=== PATIENT | female | born 1990 | race Caucasian/White ===

== ENCOUNTER 2019-12-18 13:10 | Emergency (ER) | payer OTHER, SELFPAY ==
[2019-12-18 13:16] VITALS: BP 125/49; PULSE 65; RESP 16; TEMP 36.6; O2SAT 96; BMI 29.2
--- NOTE | 2019-12-18 13:26 | CT_ITS ---
EXAMINATION: CT HEAD WITHOUT CONTRAST CLINICAL INFORMATION: Headache. COMPARISON: None TECHNIQUE: Contiguous axial imaging was performed from the skull base to vertex without intravenous administration of contrast. This CT examination was performed using dose optimization techniques as appropriate, variously including the following: *Automated exposure control *Adjustment of mA and/or kV according to patient size (this includes techniques or standardized protocols for targeted exams where dose is matched to indication/reason for exam; i.e. extremities or head) *Use of iterative reconstruction technique DLP: 628 mGy-cm FINDINGS: There is no evidence of acute intracranial hemorrhage or territorial infarction. No abnormal mass effect or midline shift is seen. Doran to white matter differentiation is well preserved. No extra-axial fluid collections are identified. The ventricles are normal in size. There is no abnormal attenuation within the brain parenchyma. The osseous structures and soft tissues are normal. The mastoid air cells and visualized portions of the paranasal sinuses are well aerated. IMPRESSION: No acute intracranial process seen.
--- NOTE | 2019-12-18 13:36 | ED.GENADULT ---
HPI - General Adult General Chief complaint: Nausea/Vomiting/Diarrhea Stated complaint: ORELLANA W/ VOMITING SINCE T-1 Time Seen by Provider: 12/18/19 13:19 Source: patient Mode of arrival: EMS Limitations: no limitations History of Present Illness HPI narrative: Patient presents to ED for headache, nausea, vomiting since yesterday. Patient states 1 episode of diarrhea this morning. Patient denies neck stiffness, fever, chills, or any recent head trauma. Patient states history of headache before in the past. Patient denies any abdominal pain. Patient states tingling in extremities with headache since yesterday. Related Data Previous Rx's Medication Instructions Recorded htzjoqkwfl-qvjlfkjpeiwge-tejc 1 cap PO Q6H PRN #20 cap 12/18/19 [Fioricet] naproxen 500 mg PO BID PRN #20 tab 12/18/19 Allergies Allergy/AdvReac Type Severity Reaction Status Date / Time No Known Allergies Allergy Unverified 11/14/19 19:03 [No Known Allergies*] Review of Systems Review of Systems: Patient states headache, nausea, vomiting, tingling in extremities, and 1 episode of diarrhea. Patient denies any fever, chills, neck stiffness, chest pain, shortness of breath, weakness / paralysis of extremities, slurred speech, loss of vision, dizziness, rash, altered mental status, or any other concerning symptoms. Yes all other systems are reviewed and are negative PMFSH Past Medical History Medical History Cellulitis and abscess of hand Substance abuse Social History Social History Alcohol intake: never Smoking Status: Current every day smoker Advance Directives: No Advance Directives Information Provided: Yes Physical Exam Vital Signs: Vital Signs: Vital Signs Temp Pulse Resp BP Pulse Ox 12/18/19 14:00 65 18 114/72 12/18/19 13:16 97.9 F 65 16 125/49 L 96 Body Mass Index 29.2 Const: General: cooperative, healthy appearing, comfortable, no acute distress, well developed and alert HENMT: Head: Yes normal to inspection, Yes No palpable skull fracture present, No Acrocyanosis present, No Rodas's sign, No contusion, No hematoma, No laceration, No palpable skull fracture, No raccoon eyes, No scalp lesion, No scalp tenderness and No Temporal artery tenderness present Ears: hearing grossly normal bilaterally General nose exam: Normal external nose present Face and sinus: Yes normal facial exam Mouth: Normal oral and palatal mucosa present and lip normal Eyes: Other: Negative for any redness of conjunctiva /sclera General: appearance normal, both eyes and all related structures Visual Centeno: normal visual centeno by confrontation Neck: Neck: Yes normal visual inspection, Yes full ROM, Yes no lymphadenopathy, Yes no meningeal signs, No positive Brudzinski's sign and No positive Kernig's sign Chest: Chest palpation & inspection: normal inspection of the chest and normal palpation of entire chest wall Resp: Effort & Inspection: normal respiratory effort, able to speak in complete sentences, no grunting, not labored, no nasal flaring, no pursed lip breathing, no segmental paradox chest wall movement, not tachypneic, no tracheal deviation and no tripod positioning Auscultation: no crackles, no rales, no rhonchi and no wheezes Cardio: Jugular venous distension: no JVD Heart sounds: S1 normal heart sound present and S2 normal heart sound present GI: Inspection: Yes normal to inspection and No abdominal wall ecchymosis Palpation (GI): Soft to palpation, not firm, nontender, no guarding and not rigid Neuro: General: no meningeal signs Course Course Course Narrative: History physical exam indicate migraine exacerbation. Patient will be sent for head CT. Patient will have basic labs given Fioricet and Zofran. Patient states she is not in withdrawal. Patient has been compliant with her methadone and has been clean from drugs for the past 3 years. Patient denies any alcohol abuse to indicate alcohol withdrawal. Reevaluation(s) Reevaluation #1: Patient head CT negative for bleed. Patient does not want labs done. Patient states she feels better and would like to be discharged. Patient states also she has a hard stick and does not want to be stuck for blood. Presently not concerned for meningitis. Patient is afebrile, non tachy, normotensive, and does not have physical exam signs for meningitis. Patient does not have any neck stiffness. Patient will be discharged with pain medication. Time: 14:57 Medical Decision Making [facility] Narrative Medical decision making narrative: Migraine exacerbation. CT scan negative for any bleed. Subarachnoid unlikely. Meningitis unlikely. Lab Data Labs: Lab Results 12/18/19 Range/Units 14:22 Urine Color YELLOW Urine Appearance HAZY Urine pH 6.0 (5.0-8.0) Ur Specific [place] >= 1.030 H (1.005-1.025) Urine Protein NEG (NEG-TRACE) MG/DL Urine Glucose (UA) NEG (NEG) MG/DL Urine Ketones NEG (NEG) MG/DL Urine Blood TRACE (NEG) Urine Nitrite NEG (NEG) Ur Leukocyte Esterase NEG (NEG) Urine RBC 1-4 (0) /HPF Urine WBC 0 (0-4) /HPF Ur Squamous Epith Cells 2+ /LPF Urine Bacteria NONE /LPF Urine Mucus 2+ /LPF Urine Test NEGATIVE (NEGATIVE) Discharge Plan Discharge Clinical Impression: Migraine Patient Disposition: Home, Self-Care Instructions: Migraine Headache (ED) Additional Instructions: Return to the ED immediately for any neck stiffness, fever, chills, worsening headache, slurred speech, weakness /paralysis of extremities, intractable nausea, intractable vomiting, coughing, rash, or any other concerning symptoms. Please follow-up with your PCP Prescriptions: New naproxen 500 mg tablet 500 mg PO BID PRN (Reason: pain) Qty: 20 RF: 0 xxihmnqaxi-gvqitoofnlsyn-ihfg [Fioricet] 50-300-40 mg capsule 1 cap PO Q6H PRN (Reason: pain) Qty: 20 RF: 0 Interventions: ED Discharge Assessment Last Done: 12/18/19 15:14 Discharge Date/Time: 12/18/19 15:26 Print Language: Sami
[2019-12-18 14:00] VITALS: BP 114/72; PULSE 65; RESP 18
--- NOTE | 2019-12-18 14:40 | PC.NURSE ---
iv not indicated at this time.
[2019-12-18 14:49] LABS: Glucose Urine UA NEG (NEG); Leukocyte Esterase Urine NEG (NEG); Nitrite Urine NEG (NEG); Specific Gravity - Urine >= 1.030 (1.005-1.025); Urine Blood TRACE (NEG); Urine Ketones NEG (NEG); Urine Protein NEG (NEG-TRACE)
[2019-12-18 14:50] LABS: UPreg QC Valid YES; Urine Pregnancy NEGATIVE (NEGATIVE)
[2019-12-18 14:51] LABS: Appearance Urine HAZY; Color Urine YELLOW
[2019-12-18 14:58] LABS: Mucus Urine 2+ /LPF; Squamous Epithelial Cell Urine 2+ /LPF; WBC Urine 0 /HPF (0-4)
[2019-12-18] MEDS: Ketorolac Tromethamine 30 MG/ML VIAL IM (15:09)
== END 2019-12-18 15:26 | disposition home or self-care (01) ==
PROVIDERS: Physician Assistant; Emergency Provider Emergency Medicine
DX: G43.909 Migraine, unspecified, not intractable, without status migrainosus (principal); F17.200 Nicotine dependence, unspecified, uncomplicated; F11.20 Opioid dependence, uncomplicated
CPT/HCPCS: 70450; 81001; 81025; 96372; 99284; J1885

== ENCOUNTER 2019-12-27 12:52 | Emergency (ER) | payer OTHER, SELFPAY ==
[2019-12-27 13:06] VITALS: BP 133/74; PULSE 70; RESP 18; TEMP 37.2; O2SAT 99; BMI 64.3
--- NOTE | 2019-12-27 13:25 | ED.NAVMDI ---
HPI - Nausea/Vomiting/Diarrhea General Chief complaint: Nausea/Vomiting/Diarrhea Stated complaint: vomiting Time Seen by Provider: 12/27/19 13:02 Source: patient Mode of arrival: ambulatory Limitations: no limitations History of Present Illness HPI Narrative: patient comes to emergency room complaining of nausea vomiting and diarrhea for 2-4 days. Patient states the vomiting exacerbated her migraine headaches. Related Data Previous Rx's Medication Instructions Recorded kjvptpymid-yxdpulgymqvyw-nzwx 1 cap PO Q6H PRN #20 cap 12/18/19 [Fioricet] naproxen 500 mg PO BID PRN #20 tab 12/18/19 loperamide 2 mg PO Q6H PRN #10 cap 12/27/19 ondansetron HCl [Zofran] 4 mg PO Q8H PRN #10 tab 12/27/19 Allergies Allergy/AdvReac Type Severity Reaction Status Date / Time No Known Allergies Allergy Verified 12/27/19 13:37 [No Known Allergies*] Review of Systems Review of Systems: Constitutional : No Weight loss, No Fever, No Chills, No Night Sweats, No Fatigue ENT/Mouth : No Hearing loss, No Ear Pain, No Nasal Congestion, No Sinus Pain, No Hoarseness, No sore throat, No Rhinorrhea, No Swallowing Difficulty Eyes: No Eye Pain, No Swelling, No Redness, No Foreign Body, No Discharge, No Vision Changes Cardiovascular : No Chest Pain, No SOB, No Dyspnea on Exertion, No Orthopnea, No Edema, No Palpitations Respiratory : No Cough, No Sputum, No Wheezing, No Smoke Exposure, No Dyspnea Gastrointestinal : Patient comes in complaining nausea vomiting diarrhea Genitourinary : no irregular bleeding, No Dysuria, No Urinary Frequency, No Hematuria, No Urinary Incontinence, No Urgency, No Flank Pain, No Urinary Flow Changes, No Hesitancy Musculoskeletal : No joint pain, No Myalgias, No Joint Swelling Skin : No Skin Lesions, No rash Neuro : No Weakness, No Numbness, No Paresthesias, No Loss of Consciousness, No Dizziness, No Headache Psych : No Anxiety/Panic, No Depression, No SI/HI/AH/VH, No Social Issues, Heme/Lymph: No Bruising, No Bleeding,No Lymphadenopathy Endocrine : No Polyuria, No Polydipsia, No Temperature Intolerance [facility] Past Medical History Medical History Cellulitis and abscess of hand Substance abuse Social History Social History Alcohol intake: former Smoking Status: Current every day smoker Use of substances other than those prescribed or required for medical reasons: No Advance Directives: No Advance Directives Information Provided: No Physical Exam Vital Signs: Vital Signs: Vital Signs Temp Pulse Resp BP Pulse Ox 12/27/19 13:06 98.9 F 70 18 133/74 99 Body Mass Index 64.3 Appearance: Alert. Oriented X3. No acute distress. Eyes: Pupils equal, round and reactive to light. ENT: Pharynx normal. port incision, most frontal teeth absent Neck: Normal inspection. Neck supple. No lymph nodes noted. No crepitus CVS: Normal heart rate and rhythm. Pulses normal. Normal S1 and S2 Respiratory: No respiratory distress. Breath sounds normal. No Wheezing. No rales Abdomen: Soft and nontender. No rigidity. No distention. good BS x4 Skin: Skin warm and dry. Needle track vega in her extremities, especially knuckles Extremities: No lower extremity edema. No lower extremity edema. No Lacerations. No Rash Neuro: Oriented X 3. No motor deficit. No sensory deficit. Moving all extermities. No slurred speech. Course Course Course Narrative: patient states that she does not feel too sick, she only wants a prescription for Zofran. Patient declined lab work and IV fluids and medication. Discharge Plan Discharge Clinical Impression: Vomiting Qualifiers: Vomiting type: unspecified Vomiting Intractability: unspecified Nausea presence: unspecified Qualified Code(s): R11.10 - Vomiting, unspecified Diarrhea Qualifiers: Diarrhea type: unspecified type Qualified Code(s): R19.7 - Diarrhea, unspecified Patient Disposition: Home, Self-Care Instructions: Acute Nausea and Vomiting (ED) Prescriptions: New ondansetron HCl [Zofran] 4 mg tablet 4 mg PO Q8H PRN (Reason: nausea and vomiting) Qty: 10 RF: 0 loperamide 2 mg capsule 2 mg PO Q6H PRN (Reason: loose stool) Qty: 10 RF: 0 No Action naproxen 500 mg tablet 500 mg PO BID PRN (Reason: pain) Qty: 20 RF: 0 oketmfrzfy-aezipycfajbgy-yhrs [Fioricet] 50-300-40 mg capsule 1 cap PO Q6H PRN (Reason: pain) Qty: 20 RF: 0
--- NOTE | 2019-12-27 14:21 | PC.NURSE ---
iv access and lab draw attempted by this rn and jax gibbs with no success. pt requesting sl zofran for nausea and to be discharged. declining full work up and iv fluids. states will f/u with pcp regarding n/v and come back if unable to hold food/drink down for extended amount of time.
== END 2019-12-27 14:46 | disposition home or self-care (01) ==
PROVIDERS: Emergency Provider Emergency Medicine
DX: R19.7 Diarrhea, unspecified (principal); R11.10 Vomiting, unspecified; F17.200 Nicotine dependence, unspecified, uncomplicated; Z71.6 Tobacco abuse counseling; Z79.899 Other long term (current) drug therapy
CPT/HCPCS: 96360; 99284

== ENCOUNTER 2021-08-31 04:41 | Emergency (ER) | payer OTHER, SELFPAY ==
[2021-08-31 04:50] VITALS: BMI 37.4
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
[2021-08-31 05:19] LABS: Appearance Urine CLEAR; Color Urine STRAW; Glucose Urine UA NEG (NEG); Leukocyte Esterase Urine TRACE (NEG); Nitrite Urine NEG (NEG); Specific Gravity - Urine <= 1.005 (1.005-1.025); Urine Blood TRACE (NEG); Urine Ketones NEG (NEG); Urine Protein NEG (NEG-TRACE)
[2021-08-31 05:20] LABS: UPreg QC Valid YES; Urine Pregnancy NEGATIVE (NEGATIVE)
[2021-08-31 05:25] LABS: Bacteria Urine TRACE /LPF; RBC Urine 0 /HPF (0); Squamous Epithelial Cell Urine 1+ /LPF; WBC Urine 0-2 /HPF (0-4)
[2021-08-31 05:32] LABS: COVID-19 Test Negative (Negative)
[2021-08-31 05:35] LABS: Amphetamine Screen Urine Not Detected (Not Detect); Barbiturates, Urine Not Detected (Not Detect); Benzodiazepines Screen Urine Not Detected (Not Detect); Cannabinoid Screen Urine POSITIVE (Not Detect); Cocaine Screen Urine POSITIVE (Not Detect); Fentanyl, urine POSITIVE (Not Detect); Opiate Screen Urine Not Detected (Not Detect); Phencyclidine Screen Urine Not Detected (Not Detect)
[2021-08-31 05:47] VITALS: BP 149/89; PULSE 89; RESP 16; TEMP 37.1; O2SAT 99
[2021-08-31 05:50] LABS: Basophils Percent Auto 0.8 % (0-2); Eosinophils Percent Auto 0.2 % (0-4); Hematocrit 42.6 % (37.0-47.0); Hemoglobin 14.2 g/dl (12.0-16.0); Imm Gran Abs Auto 0.02 X10*3/uL (0.00-0.03); Imm Gran Pct Auto 0.4 % (0.0-0.4); Lymphocytes Absolute Auto 2.7 X10*3/uL (1.2-4.9); Lymphocytes Percent Auto 55.8 % (20-40); MANUAL DIFF FLAG SCAN; Mean Corpuscular HGB Conc 33.3 g/dl (31.0-35.0); Mean Corpuscular Hemoglobin 32.7 pg (27.0-33.0); Mean Corpuscular Volume 98.2 fL (80.0-98.0); Mean Platelet Volume 8.7 fL (9.4-12.3); Monocytes Absolute Auto 0.3 X10*3/uL (0.1-1.2); Monocytes Percent Auto 6.4 % (2-11); Neutrophils Absolute Auto 1.8 x10*3/uL (2.0-8.3); Neutrophils Percent Auto 36.4 % (45-73); Platelet Count 228 X10*3/uL (160-400); Red Blood Count 4.34 X10*6/uL (4.20-5.50); Red Cell Distribution Width 12.4 % (11.0-16.0); SCAN SMEAR FLAG 1; White Blood Count 4.8 X10*3/uL (4.8-10.8)
[2021-08-31 06:00] VITALS: BP 127/73; PULSE 80; RESP 16; TEMP 36.4; O2SAT 96
--- NOTE | 2021-08-31 06:04 | PC.NURSE ---
Patient just got transferred from main ED, independent ambulation, VSS, coherent, alert and orientedx4, Methadone dose verified/pharmacy faxed, [facility] referral completed/confirmed/pending ETA, currenty in bed resting, denied distress, will continue to monitor.
[2021-08-31 06:32] LABS: SLIDE REVIEW VERIFIED
--- NOTE | 2021-08-31 07:24 | PC.NURSE ---
patient appears to remain asleep at present respirations are even and unlabored patient appears in no distress.
[2021-08-31] MEDS: methADONE HCl 20 MG/2 ML ORAL.CONC 70 MG PO (07:55)
[2021-08-31] MEDS: Acetaminophen 325 MG TABLET 650 MG PO (11:27)
== END 2021-08-31 12:16 | disposition home or self-care (01) ==
PROVIDERS: Emergency Provider Emergency Medicine
DX: F33.1 Major depressive disorder, recurrent, moderate (principal); F41.1 Generalized anxiety disorder; F43.0 Acute stress reaction; F11.10 Opioid abuse, uncomplicated; Z20.822 Contact with and (suspected) exposure to COVID-19; Z79.899 Other long term (current) drug therapy
CPT/HCPCS: 36415; 80053; 80307; 81001; 81025; 82077; 85025; 87635; 99283

== ENCOUNTER 2024-10-08 08:28 | Emergency (ER) | payer OTHER, SELFPAY ==
[2024-10-08] VITALS (9 sets, daily range): BP systolic 122–152; BP diastolic 60–78; PULSE 57–82; RESP 12–20; TEMP 36.7–37.8; O2SAT 95–98; BMI 35.5
--- NOTE | ~2024-10-08 | CT_ITS ---
EXAMINATION: CT MAXILLOFACIAL WITH IV CONTRAST HISTORY: R sided dental swelling, drainage, trismus. TECHNIQUE: Serial 1.5 mm helically acquired images were obtained of the facial bones after the intravenous administration of 85 mL Omnipaque 350 per standard departmental protocol. Coronal and sagittal reformatted images were also obtained and evaluated. One or more of the following techniques was used for dose reduction: Automated exposure control, adjustment of the mA and/or kV according to patient size, use of iterative reconstruction technique. DLP: 508 mGy-cm COMPARISON: There are no prior studies available for comparison. FINDINGS: The facial bones are intact. No fractures are identified. The globes are intact. The paranasal sinuses are clear. The visualized portion of the brain is unremarkable. There is marked asymmetry and enlargement of the right oracle developer space with swelling of the right masseter muscle. There is stranding of the overlying subcutaneous fat and associated skin thickening consistent with cellulitis. There is a 2.9 x 1.5 x 1.9 cm fluid collection surrounding the right mandibular neck/superior ramus, consistent with an abscess. There is extensive dental caries. There are enlarged lymph nodes in the neck bilaterally measuring up to 1.4 cm in maximum short axis dimension. CT/CT facial bones w IV con IMPRESSION: 1. Findings consistent with right facial cellulitis as described, with marked asymmetry of the right oracle developer space and enlargement of the masseter muscle. 2. 2.9 x 1.5 x 1.9 cm fluid collection surrounding the right mandibular neck/superior ramus cyst with an abscess. There is no associated osseous destruction. 3. Extensive dental caries. Electronically signed by: Flakito Gaytan MD 10/08/2024 11:59 AM EDT
--- NOTE | 2024-10-08 09:12 | ED.DENTAL ---
HPI - Dental/Oral General Chief complaint: Dental/Oral Stated complaint: Facial swelling Time Seen by Provider: 10/08/24 08:57 Source: patient and old records reviewed Limitations: no limitations History of Present Illness ED Provider: BUFFY KINSEY Narrative: 33 yo female with prior opiate use disorder but has not been on any methadone in over a year. She is a smoker. She has poor dentition and cavities was waiting a long time to have oral surgeon pull all her teeth but unable to get appointment. She never had her wisdom teeth extracted. Last 5 days, fevers, severe pain taking motrin without relief. She notes severe pain and swelling to R side of face and cannot open her mouth. She has not been on any antibiotics. MD Complaint: tooth pain Location: Tooth # (entire R lower side jaw) Onset (ago): day(s) (5) Duration: worsening Severity: severe Relieving factors: nothing Exacerbating factors: swallowing and other Context: history of dental caries and poor dental care Associated symptoms: gum swelling, pain with swallowing and sore throat Treatment prior to arrival: other Related Data Home Medications ?Medication ?Instructions ?Recorded ?Confirmed methadone 5 mg tablet 68 mg PO DAILY 08/31/21 08/31/21 Allergies Allergy/AdvReac Type Severity Reaction Status Date / Time No Known Allergies (No Known Allergy Verified 10/08/24 08:34 Allergies*) Review of Systems Review of Systems: Constitutional : No Fever, No Chills ENT/Mouth : pos dental pain, pos facial swelling, pos pain with swallowing Eyes: No Eye Pain, No Swelling, No Redness, No Foreign Body Cardiovascular : No Chest Pain, No SOB Respiratory : No Cough, No Dyspnea Gastrointestinal : No Nausea, No Vomiting, No Diarrhea, No abdominal Pain Genitourinary : No Dysuria, No Hematuria Musculoskeletal : positive joint pain, No Myalgias, No Joint Swelling Skin : No Skin lacerations, No rash Neuro : No Weakness, No Numbness, No Loss of Consciousness, No Dizziness, poor Headache All other systems reviewed and are negative [facility] Past Medical History Medical History Cellulitis and abscess of hand Substance abuse Social History Social History Alcohol intake: current Alcohol type: beer and hard liquor Smoked in Last 30 Days: Yes Use of substances other than those prescribed or required for medical reasons: Yes Substance Use Type: Heroin Advance Directives: No Advance Directives Information Provided: Yes Do you have a plan to hurt others: No Plan Patient : No Physical Exam Vital Signs: Vital Signs: Last Vital Signs Temp 98.2 F 10/08/24 14:36 Pulse 57 10/08/24 14:36 Resp 16 10/08/24 14:36 BP 150/60 H 10/08/24 14:36 Pulse Ox 97 10/08/24 14:36 O2 Del Method Room Air 10/08/24 14:36 BMI result Body Mass Index 35.5 Appearance: Alert. Oriented X3. in pain mild acute distress. Eyes: Pupils equal, round and reactive to light. ENT: Pharynx ttp along R lower jaw with scant purulence noted but I cannot visualize where it is coming from, submandibular swelling, redness and swelling over preauricular area, trismus noted, hallitosis noted, no drooling and normal voice. no stridor Neck: Normal inspection. Neck supple. CVS: Normal heart rate and rhythm. Pulses normal. Respiratory: No respiratory distress. Breath sounds normal. Abdomen: Soft and nontender. Skin: Skin warm and dry. Normal skin color. Extremities: No lower extremity edema. Neuro: Oriented X 3. No motor deficit. No sensory deficit. Course Course Course Narrative: 1248pm patient declined from [facility] they have no oral coverage 1248pm call to [facility] Reevaluation(s) Reevaluation #1: accepted to [place] REDDY Garibay MD from [facility] [place] Medications Administered Discontinued Medications Generic Name Dose Route Start Last Admin Trade Name German PRN Reason Stop Dose Admin Hydromorphone HCl 1 mg 10/08/24 08:57 10/08/24 09:25 Hydromorphone Hcl 1 Mg/Ml Syringe IVPUSH 10/08/24 08:58 1 mg ONCE ONE Administration Protocol Hydromorphone HCl 1 mg 10/08/24 11:35 10/08/24 11:40 Hydromorphone Hcl 1 Mg/Ml Syringe IVPUSH 10/08/24 11:36 1 mg ONCE ONE Administration Protocol Lactated Ringer's 1,000 mls @ 999 mls/hr 10/08/24 08:57 10/08/24 12:26 Lr IV 10/08/24 09:57 Infused .Q1H1M ONE Infusion Acetaminophen 1,000 mg in 100 mls @ 400 mls/hr 10/08/24 08:57 10/08/24 10:23 Ofirmev IV 10/08/24 09:11 Infused ONCE ONE Infusion Piperacillin Sod/Tazobactam 50 mls @ 100 mls/hr 10/08/24 08:57 10/08/24 10:48 Sod 3.375 gm/ Sodium Chloride IV 10/08/24 09:26 Infused ONCE ONE Infusion Iohexol 100 ml 10/08/24 11:37 10/08/24 11:37 Iohexol 350 Mg/Ml 100 Ml Infus..Btl IV 10/08/24 11:38 85 ml ONCE ONE Administration Ketorolac Tromethamine 15 mg 10/08/24 12:44 10/08/24 12:50 Ketorolac Tromethamine 15 Mg/Ml Vial IVPUSH 10/08/24 12:45 15 mg ONCE ONE Administration Lorazepam 0.5 mg 10/08/24 10:26 10/08/24 10:37 Lorazepam 0.5 Mg Tablet PO 10/08/24 10:27 0.5 mg ONCE ONE Administration Medical Decision Making Medical Decision Making [facility] Narrative: 33 yo female with prior opiate use disorder now here with c/o facial pain and swelling with fevers - at this time will need labs, cultures, IV abx - started zosyn, CT scan for extent of disease given needs for OMFS anticipated I did let the patient and her mother know she would likely be transferred to . She is aware and agrees with plan. Differential Diagnosis Differential Diagnoses: The differential diagnosis associated with the presentation includes dental abscess, osteo, dental caries, sialoadenitis Admission/Observation Consideration of admission/observation: Escalation of care including admission/observation considered Lab Data [facility] Lab Attestation statement: I reviewed the patient's lab results. 10/08/24 09:14 10/08/24 09:14 Labs: Lab Results 10/08/24 Range/Units 09:14 WBC 9.9 (4.8-10.8) X10*3/uL RBC 3.38 L D (4.20-5.50) X10*6/uL Hgb 12.0 (12.0-16.0) g/dl Hct 34.6 L (37.0-47.0) % MCV 102.4 H (80.0-98.0) fL MCH 35.5 H (27.0-33.0) pg MCHC 34.7 (31.0-35.0) g/dl RDW 12.4 (11.0-16.0) % Plt Count 149 L D (160-400) X10*3/uL MPV 8.9 L (9.4-12.3) fL Absolute Nucleated RBC 0.000 (0.0-0.012) X10*3/uL Nucleated RBC % (auto) 0.0 (0.0-0.2) /100WBC Sodium 137 (135-145) mmol/L Potassium 3.3 (3.3-5.1) mmol/L Chloride 103 (96-108) mmol/L Carbon Dioxide 21 L (22-29) mmol/L Anion Gap 16 (12-20) BUN 7 L (9-16) mg/dL Creatinine 0.48 L (0.5-1.4) mg/dL Estim Creat Clear Calc 186.9 Estimated GFR > 60 Random Glucose 159 H (60-115) mg/dL Lactic Acid 1.6 (0.5-2.0) mmol/L Calcium 9.0 (8.4-10.2) mg/dL Beta HCG, Quant < 2 mIU/mL Independent Interpretation I performed an independent interpretation of an: CT Scan Interpretation: FINDINGS: The facial bones are intact. No fractures are identified. The globes are intact. The paranasal sinuses are clear. The visualized portion of the brain is unremarkable. There is marked asymmetry and enlargement of the right behavioral intervention specialist space with swelling of the right masseter muscle. There is stranding of the overlying subcutaneous fat and associated skin thickening consistent with cellulitis. There is a 2.9 x 1.5 x 1.9 cm fluid collection surrounding the right mandibular neck/superior ramus, consistent with an abscess. There is extensive dental caries. There are enlarged lymph nodes in the neck bilaterally measuring up to 1.4 cm in maximum short axis dimension. CT/CT facial bones w IV con IMPRESSION: 1. Findings consistent with right facial cellulitis as described, with marked asymmetry of the right behavioral intervention specialist space and enlargement of the masseter muscle. 2. 2.9 x 1.5 x 1.9 cm fluid collection surrounding the right mandibular neck/superior ramus cyst with an abscess. There is no associated osseous destruction. 3. Extensive dental caries. Electronically signed by: Flakito Gaytan MD 10/08/2024 11:59 AM EDT RP Radiology Impression Discussion of test interpretation with radiology: I have reviewed the radiologist's reading. Independent Historian Clinical information obtained from an independent historian. History obtained from or confirmed by: Parent External Record Review External record reviewed: Outpatient record Critical Care Time Critical Care Time Critical Care Time: Yes Total Critical Care Time: 45 Attestation: Time is exclusive of separately billable procedures. Time includes: direct patient care, patient reassessment, coordination of patient care, interpretation of data (laboratory data, pulse ox, CT scans), review of patient's medical records, medical consultation and documentation of patient care. repeat IV doses of dilaudid with some improvement in pain. Procedures excluded from critical care time: none I attest to this time spent taking care of the patient Discharge Plan Discharge Clinical Impression: Cellulitis of face, Abscess of mandible Patient Disposition: [facility] Transfer Details: [facility] Prescriptions: No Action methadone 5 mg Tablet 68 mg PO DAILY Print Language: Mohawk
[2024-10-08 09:22] LABS: Hematocrit 34.6 % (37.0-47.0); Hemoglobin 12.0 g/dl (12.0-16.0); Mean Corpuscular HGB Conc 34.7 g/dl (31.0-35.0); Mean Corpuscular Hemoglobin 35.5 pg (27.0-33.0); Mean Corpuscular Volume 102.4 fL (80.0-98.0); NRBC Abs Auto 0.000 X10*3/uL (0.0-0.012); NRBC Pct Auto 0.0 /100WBC (0.0-0.2); Platelet Count 149 X10*3/uL (160-400); Red Blood Count 3.38 X10*6/uL (4.20-5.50); White Blood Count 9.9 X10*3/uL (4.8-10.8)
[2024-10-08] MEDS: Lactated Ringers 1,000 ML 999 ML IV (09:28)
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
[2024-10-08 09:35] LABS: Anion Gap 16 (12-20); Blood Urea Nitrogen 7 mg/dL (9-16); Calcium 9.0 mg/dL (8.4-10.2); Carbon Dioxide 21 mmol/L (22-29); Chloride 103 mmol/L (96-108); Creatinine Clr Calc Pharmacy 186.9; Estimated Glomerular Filt Rate > 60; Potassium 3.3 mmol/L (3.3-5.1); Sodium 137 mmol/L (135-145)
--- NOTE | 2024-10-08 10:43 | PC.NURSE ---
Patient presets to Ed c/o right sided jaw/tooth pain Pain started about 5 days ago and swelling began two days ago Denies injury, patient limited ROM with mouth r/t pain, Pain rated 10/10 Medicated with dilaudid and tylenol, patient reports no effect Patient c/o anxiety medicated with ativan, effectiveness pending Blood collected/sent IV 22 in left forearm currently running pipercillin Mother at bedside Provider in to see patient Plan of care on going
[2024-10-08] MEDS: iohexoL 350 MG/ML 100 ML INFUS..BTL IV (11:37)
--- NOTE | 2024-10-08 11:48 | PC.NURSE ---
Patient appears more calm after receiving ativan Patient still c/o facial pain rated 10/10 Notified provider, received new order for dilaudid Administered per MAr, effectiveness pending
--- NOTE | 2024-10-08 16:26 | PC.NURSE ---
Transferred patient care to EMS Patient was medicated with dilaudid before transfer
--- NOTE | 2024-10-08 16:37 | PC.NURSE ---
Nurse to anand report given to Dhara Greenfield at [facility]
== END 2024-10-08 16:28 | disposition short-term general hospital (02) ==
PROVIDERS: Emergency Provider Emergency Medicine
DX: L03.211 Cellulitis of face (principal); M27.2 Inflammatory conditions of jaws; K08.89 Other specified disorders of teeth and supporting structures; F11.20 Opioid dependence, uncomplicated
CPT/HCPCS: 36415; 70487; 80048; 83605; 84702; 85027; 87040; 96361; 96365; 96375; 96376; 99285; 99291; J0131; J1171; J1885; J2543; J7120; Q9967

== ENCOUNTER → 2024-10-08 08:57 | Outpatient (BNV) | payer OTHER, SELFPAY | PROVIDERS: Emergency Provider Emergency Medicine; Visit Provider Radiology Diagnostic Radiology | DX: R22.0 Localized swelling, mass and lump, head (principal) | CPT/HCPCS: 70487 ==